=== PATIENT | female | born 1980 | race American Indian/Alaskan Native ===

== ENCOUNTER 2021-12-02 16:01 | Emergency (ER) | payer OTHER ==
[2021-12-02] MEDS ORDERED: ACETAMINOPHEN 500 MG TAB PO ONE (16:57)
[2021-12-02] MEDS ORDERED: IBUPROFEN 800 MG TAB PO ONE (16:57)
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
[2021-12-02 19:41] VITALS: BP 126/61
== END 2021-12-02 19:38 | disposition home or self-care (01) ==
LOC: ED 16:01
DX: S05.12XA Contusion of eyeball and orbital tissues, left eye, initial encounter (principal); Y08.89XA Assault by other specified means, initial encounter; Y93.89 Activity, other specified; Y92.89 Other specified places as the place of occurrence of the external cause; Y99.8 Other external cause status
CPT/HCPCS: 70486; 99283